=== PATIENT | female | born 1940 | race African-American/Black ===

== ENCOUNTER 2019-03-07 14:37 | Inpatient (IN) | payer MEDICARE ==
[~2019-03-07 14:37] MED LIST: Dexamethasone 20 MG/5 ML VIAL ONE; Glycopyrrolate 0.2 MG/ML 5 ML SYRINGE ONE; Lidocaine 1% PF 5 ML VIAL ONE; PROPOFOL 200 MG/20 ML VIAL ONE; Rocuronium Bromide 10 MG/ML (10ML VIAL) ONE
[2019-03-07 15:26] LABS: #Lymphocytes 2.3 thou/uL (1.20-3.40); #Neutrophils 11.9 thou/uL (1.40-6.50); %Basophils 0.3 % (0.0-1.0); %Eosinophils 0.1 % (0.0-10.0); %Lymphocytes 14.1 % (21.0-51.0); %Monocytes 12.2 % (0.0-10.0); %Neutrophils 73.4 % (42.0-75.0); Hemoglobin 11.4 g/dL (12.0-16.0); Mean Corpuscular HGB CONC 32.1 g/dL (32.0-36.0); Mean Corpuscular Hemoglobin 25.1 pg (27.0-31.0); Mean Corpuscular Volume 78.1 fL (78.0-98.0); Mean Platelet Volume 7.6 fL (7.4-10.4); Platelet Count 231 thou/uL (130-400); RBC Distribution Width 12.5 % (11.5-14.5); Red Blood Cell (RBC) Count 4.54 mill/uL (4.20-5.40); White Blood Cell (WBC) Count 16.2 thou/uL (4.8-10.8)
--- NOTE | 2019-03-07 15:41 | ULT ---
US Gallbladder RUQ: 03/07/2019 2:54 PM CLINICAL HISTORY: Right upper quadrant abdominal pain with fever and elevated white blood cell count. . STUDY: Limited right upper quadrant ultrasound of abdomen. COMPARISON: None. FINDINGS: Liver: Size: Normal. Echogenicity: Normal. Contour: Smooth. Mass: None. Bile ducts: No intrahepatic or extrahepatic biliary dilatation. Common bile duct measures 3 mm. Gallbladder: Shadowing stones are seen in the gallbladder. There is also comet tail artifact emanatin g from the gallbladder wall consistent with gallbladder cholesterolosis. Pancreas: Head, body, and tail appear normal. Right kidney: No pelvicalyceal dilatation. Right kidney measuring 10.3 cm in length. IMPRESSION: 1. Cholelithiasis 2. Gallbladder wall cholesterolosis.
[2019-03-07 15:46] LABS: ALT (SGPT) 10 U/L (8-55); AST (SGOT) 16 U/L (5-34); Albumin 3.3 g/dL (3.4-4.8); Alkaline Phosphatase 65 U/L (40-110); Anion Gap 13 mmol/L (10-20); BUN (Urea Nitrogen) 11 mg/dL (9.8-20.1); Bilirubin, Total 0.8 mg/dL (0.2-1.2); Calc. Creatinine Clearance 0 mL/min (70-130); Calcium 8.7 mg/dL (7.8-10.44); Carbon Dioxide 22 mmol/L (23-31); Chloride 99 mmol/L (98-107); Estimated GFR-MDRD 60; Globulin 3.7 g/dL (2.4-3.5); Glucose 102 mg/dL (83-110); Lipase Less than 4 U/L (8-78); Potassium 3.4 mmol/L (3.5-5.1); Sodium 131 mmol/L (136-145)
[2019-03-07 16:12] LABS: Bacteria/HPF None Seen HPF (None Seen); Bilirubin Negative (Negative); Blood, Urine Trace (Negative); Clarity Clear (Clear); Glucose, Urine (Dipstick) Normal (Negative); Leukocyte Negative Leu/uL (Negative); Nitrite Negative (Negative); Protein, Urine (Dipstick) 30 mg/dL (Neg-Trace); Squamous Epithelial 0-3 HPF (0-3); Urobilinogen Normal mg/dL (Less than 2); WBC/HPF 0-3 HPF (0-3)
--- NOTE | 2019-03-07 17:47 | HP ---
CHIEF COMPLAINT: Abdominal pain. HISTORY OF PRESENT ILLNESS: Ms. Sarmiento is an 78-year-old woman with a 4-day history of abdominal pain. She was at her sister's who passed suddenly on evening. After the metal fabricator, she started having central abdominal pain which radiated all over. She states that ever since then has come and gone somewhat unpredictably. She thought she might be constipated because she had not had a regular bowel movement in several days, so she took magnesium citrate last night and did pass some watery stool, but this did not relieve her pain at all. She came to her local emergency room today because when she woke up, the pain was quite intense. She cannot really localize it to one specific area. She should state that it seems to go all over her abdomen. She has been nauseated but has not had any vomiting. She denies any fevers or chills. She denies any changes in her bowel habits except for the recent constipation. She has not had any blood in her stool or any melena. PAST MEDICAL HISTORY: Hypertension. PAST SURGICAL HISTORY: Tubal ligation in the 1960s. ALLERGIES: SHE HAS NO KNOWN DRUG ALLERGIES. MEDICATIONS: She states that she takes several medications for her blood pressure. The list that we obtained states that she is on aspirin 81 mg p.o. daily, losartan 50 mg p.o. daily, potassium 20 mEq p.o., quinapril 10 mg p.o. and verapamil 40 mg p.o. She is unclear exactly how much she takes of each one. She states that one of her medications she only takes twice a week, but the other one she takes every day and that she has been taking these regularly. Blood pressure and temperature were both elevated at [facility]. Her temperature was 99.6, and her blood pressure was 195/69, but these have both come down since her transfer and since receiving IV antibiotics. She states that her pain is no longer severe as it was this morning and that it comes and goes unpredictably. She cannot related to any particular time of the day or activity or position or to eating. Workup in the [facility] included lab work, which showed an elevated white count and a CT which showed a distended gallbladder with pericholecystic stranding worrisome for cholecystitis. Gallbladder ultrasound here showed a normal caliber common bile duct, but multiple stones in the gallbladder with cholesterolosis, wall thickening was not definitely seen nor was there any pericholecystic fluid. REVIEW OF SYSTEMS: Ten system review of systems is negative except per HPI. The patient denies dysuria, hematuria, or recent confusion. She has been losing weight over the past year, but she has been trying to do this. When she went to her six-month followup in the spring, she had lost 12 pounds and when she followed up again this fall, she had lost another 7 pounds. She has been trying to eat healthy. SOCIAL HISTORY: The patient does not drink, smoke, or use illicit drugs. She states that she is up to date on her health maintenance. Her family said that they were told she had a mammogram this year, although the patient cannot definitely remember when her last mammogram was. She states that they did check her blood for stool at her annual and that this has been normal, but she has never had a colonoscopy. PHYSICAL EXAMINATION: VITAL SIGNS: Current systolic blood pressures in the 120s, heart rate is normal. She is 100% saturated on room air. GENERAL: Reveals a pleasant elderly woman, in no acute distress. She is somewhat forgetful regarding the timing of recent medical interventions and medications, but is able to give a good history regarding her past medical history and recent events. She is not jaundiced or icteric. She is not flushed or toxic in appearance. HEENT: Unremarkable. NECK: Supple without lymphadenopathy or thyroid nodules. HEART: Regular in its rate and rhythm without murmurs, rubs, or gallops. LUNGS: Clear to auscultation bilaterally. ABDOMEN: Soft and nondistended. She has some mild tenderness to palpation in the right upper quadrant and left lower quadrant. She does not exhibit rigidity, rebound, or guarding. She does not have any palpable masses or hernias. She has a long lower midline incision which is well healed. She states that this was just from a tubal ligation and she did not have a hysterectomy, , or salpingo-oophorectomy. EXTREMITIES: Warm and well perfused with normal pedal pulse on the left, slightly diminished on the right. No edema. NEURO: No focal deficits. PSYCHIATRIC: Alert, oriented, and appropriate. Asking appropriate questions and answering questions appropriately. LABORATORY DATA: CT and ultrasound are as previously noted. LFTs and electrolytes are unremarkable. UA is still pending. ASSESSMENT: The patient with cholelithiasis and likely cholecystitis. She has been having intermittent abdominal pain, which is quiescent currently, which has been persistent over the past four days. I think this is most likely related to her gallbladder, although I cannot guarantee this. Other possible etiologies include gastroenteritis, constipation, and gastritis, although I feel these are somewhat less likely. We discussed the diagnosis of gallstones and cholecystitis and the recommended treatment, which is laparoscopic cholecystectomy. Inherent risks of the surgery include, but are not limited to, bleeding, infection, risks of anesthesia, damage to nearby structures including bowel, liver, and bile duct, need for open surgery, need for other procedures. She understands, accepts these risks, and wishes to proceed. She has received IV antibiotics at the outside ER and we will continue these perioperatively. If she recovers uneventfully, she may be discharged home postoperatively or observed overnight depending on how she is doing. All of her questions and her grandson's questions were answered. The patient and her family are in agreement that she is able to give consent on her own and she seems fully confident to do so. She does have a medical power of claims attorney designated in the event that she is unable to make her own medical decision. Job ID: [id number]
[2019-03-07] MEDS ORDERED: Bupivacaine 0.25% HCL 30 ML VIAL ONE (18:51)
[2019-03-07] MEDS ORDERED: Lidocaine 1% w/Epinephrine 1:100K 20 ML VIAL ONE (18:51)
[2019-03-07] MEDS ORDERED: Fentanyl 100 MCG/2 ML VIAL ONE (18:55)
[2019-03-07] MEDS ORDERED: Piperacillin/Tazobactam 3.375 GM VIAL ONE (18:56)
[2019-03-07] MEDS ORDERED: Sodium Chloride 0.9% 100 ML ONE (18:56)
[2019-03-07] MEDS ORDERED: Ondansetron HCl/PF 4 MG/2 ML Vial IVP PRN (21:26)
[2019-03-07] MEDS ORDERED: Promethazine HCl 25 MG/ML VIAL SLOW IVP PRN (21:26)
[2019-03-07] MEDS ORDERED: PACU-Morphine 4MG/ML VIAL SLOW IVP PRN (21:26)
[2019-03-07] MEDS ORDERED: Promethazine HCl 25 MG/ML VIAL IM PRN (21:26)
[2019-03-07] MEDS ORDERED: Ibuprofen 200 MG TAB PO PRN ×2 (22:09→22:10)
[2019-03-07] MEDS ORDERED: Ondansetron PF 4 MG/2 ML Vial IVP PRN (22:09)
[2019-03-07] MEDS ORDERED: Acetaminophen 325 MG TAB PO PRN ×2 (22:10→22:11)
[2019-03-07] MEDS ORDERED: Morphine 2 MG/ML SYRINGE SLOW IVP PRN ×2 (22:12→22:13)
[2019-03-07] MEDS ORDERED: traMADol HCl 50 MG TAB PO PRN (22:14)
[2019-03-07] MEDS: hydrALAZINE 20 MG/ML VIAL SLOW IVP PRN (22:29)
[2019-03-07] MEDS: Sodium Chloride 0.9% 1,000 ML IV SCH (22:30)
[2019-03-07] MEDS: traMADol HCl 50 MG TAB PO PRN (23:51)
[2019-03-08] MEDS: Piperacillin/Tazobactam 3.375 GM in Sodium Chloride 0.9% 100 ML IVPB SCH ×4 (02:00→20:44)
[2019-03-08 02:55] VITALS: BMI 35.2
[2019-03-08 05:24] LABS: #Lymphocytes 0.9 thou/uL (1.20-3.40); #Monocytes 1.1 thou/uL (0.11-0.59); %Eosinophils 0.1 % (0.0-10.0); %Lymphocytes 8.3 % (21.0-51.0); %Monocytes 9.6 % (0.0-10.0); Hemoglobin 10.4 g/dL (12.0-16.0); Mean Corpuscular HGB CONC 31.4 g/dL (32.0-36.0); Mean Corpuscular Hemoglobin 24.5 pg (27.0-31.0); Mean Corpuscular Volume 78.3 fL (78.0-98.0); Mean Platelet Volume 7.4 fL (7.4-10.4); Platelet Count 245 thou/uL (130-400); RBC Distribution Width 12.6 % (11.5-14.5); Red Blood Cell (RBC) Count 4.26 mill/uL (4.20-5.40); White Blood Cell (WBC) Count 10.9 thou/uL (4.8-10.8)
[2019-03-08 05:53] LABS: ALT (SGPT) 30 U/L (8-55); AST (SGOT) 52 U/L (5-34); Alkaline Phosphatase 60 U/L (40-110); Anion Gap 14 mmol/L (10-20); BUN (Urea Nitrogen) 12 mg/dL (9.8-20.1); Bilirubin, Total 0.5 mg/dL (0.2-1.2); Calc. Creatinine Clearance 59 mL/min (70-130); Calcium 8.5 mg/dL (7.8-10.44); Carbon Dioxide 22 mmol/L (23-31); Chloride 102 mmol/L (98-107); Estimated GFR-MDRD 57; Globulin 3.6 g/dL (2.4-3.5); Glucose 133 mg/dL (83-110); Potassium 3.5 mmol/L (3.5-5.1); Protein, Total 6.6 g/dL (6.0-8.3); Sodium 134 mmol/L (136-145)
[2019-03-08] MEDS: Docusate 100 MG CAP PO SCH ×2 (08:19→20:44)
[2019-03-08] MEDS: Sodium Chloride 0.9% 1,000 ML IV SCH ×2 (08:19→17:38)
[2019-03-08] MEDS: hydrALAZINE 20 MG/ML VIAL SLOW IVP PRN ×2 (09:19→17:21)
--- NOTE | 2019-03-08 14:27 | PDOC.OP ---
Operative Note - Operative Note Operative Note: DATE OF PROCEDURE: PROCEDURES: Laparoscopic cholecystectomy. SURGEON: Enio Campbell M.D. PREOPERATIVE DIAGNOSIS: POSTOPERATIVE DIAGNOSIS: FINDINGS HISTORY: Patient with symptoms of biliary colic. Laparoscopic cholecystectomy was recommended for symptomatic relief. Preoperative LFTs were normal and bile duct was normal caliber on preoperative imaging. PROCEDURE: After informed consent was obtained and appropriate preoperative antibiotics were administered, the patient was taken to the operating room and placed in the supine position and general endotracheal anesthesia was administered. The stomach was decompressed with an OG tube and the abdomen was prepped and draped in standard sterile fashion. Local anesthesia was infused to the skin and subcutaneous tissues at the umbilical level. A transverse skin incision was made. The fascia was elevated and a Veress needle was placed into the abdominal cavity without difficulty. Opening pressure was less than 5 and carbon dioxide gas easily insufflated to an intra-abdominal pressure of 15, which the patient tolerated well. The Veress needle was withdrawn and a Magna port advanced under direct vision. The abdominal cavity was carefully examined. There was no evidence of Veress needle or of trocar injury. Local anesthesia was infused to the skin and subcutaneous tissues at the epigastric, right upper quadrant, and right lateral abdominal sites and trocars were placed under direct vision of the laparoscope. The gallbladder was completely obscured by omental adhesions but a plane was able to be developed between the omentum and the gallbladder and the gallbladder exposed. It was too distended to grasp so it was aspirated with colorless purulent fluid returned. This was sent for Gram stain and culture. The fundus of the gallbladder was grasped and retracted superiorly. The infundibulum was grasped and retracted laterally. The serosa was stripped inferiorly at the level of the neck of the gallbladder exposing the cystic duct and artery which were traced clearly to their insertion in the gallbladder. This was done with difficulty due to the severely inflamed nature of the tissues in this area, and the indurated fat near the infundibulum of the gallbladder had to be excised to allow exposure of the deeper tissues. Critical view of safety was obtained and the cystic duct and artery were clipped and divided between clips. The gallbladder was then dissected free of the gallbladder bed using hook electrocautery. Prior to complete removal of the gallbladder from the gallbladder bed, the area of the cystic duct and artery stumps was examined. The clips were in good position completely across these structures and there was no bleeding and no leakage of bile. The gallbladder was then placed into an EndoCatch bag and drawn out through the epigastric incision. The epigastric trocar was replaced and the operative site easily irrigated to clear. There was persistent oozing from the gallbladder bed which was controlled with a combination of electrocautery and Jeaneth. The epigastric trocar was removed and the fascia closed under direct laparoscopic vision with a 0 Vicryl suture on a GraNee needle in a figure-of- eight manner with excellent technical result. The right upper quadrant and right lateral abdominal trocars were removed and hemostasis verified. Carbon dioxide gas was allowed to desufflate through the umbilical trocar which was then removed. The skin incisions were closed with 4-0 subcuticular Monocryl sutures and Dermabond dressings were placed. The patient was extubated and taken to the recovery room in good condition. There were no complications. ESTIMATED BLOOD LOSS: Minimal. SPECIMEN : Gallbladder and contents, purulent bile from within the gallbladder sent for Gram stain and culture.
--- NOTE | 2019-03-08 15:36 | PDOC.GSPN ---
Surgery Progress Note: Subj - Subjective Narrative: Patient is feeling good. She has been ambulating with her rolling walker and physical therapy. She hasn't passed flatus yet but is not nauseated. Her incisions look good. She has gram-negative rods on culture but ID and sensitivity are pending. White count is lower. Assessment/plan: Doing well status post laparoscopic cholecystectomy for acute cholecystitis. She had pus in her gallbladder and I'm going to keep her for another day for continued IV antibiotics. Awaiting cultures. We'll request a rolling walker for home use. Surgery Progress Note: Obj - Vital signs Vital signs: Vital Signs - Most Recent Temp Pulse Resp BP Pulse Ox 99.0 F 83 20 179/69 H 97 03/08/19 12:14 03/08/19 12:14 03/08/19 12:14 03/08/19 12:14 03/08/19 12:14 Surgery Progress Note: Results - Labs Result Diagrams: 03/08/19 05:03 03/08/19 05:03 Lab results: Laboratory Results - last 24 hr 03/08/19 03/08/19 05:03 05:03 WBC 10.9 H RBC 4.26 Hgb 10.4 L Hct 33.3 L MCV 78.3 MCH 24.5 L MCHC 31.4 L RDW 12.6 Plt Count 245 MPV 7.4 Neutrophils % 82.0 H Lymphocytes % 8.3 L Monocytes % 9.6 Eosinophils % 0.1 Basophils % 0.0 Neutrophils # 9.0 H Lymphocytes # 0.9 L Monocytes # 1.1 H Eosinophils # 0.0 Basophils # 0.0 Sodium 134 L Potassium 3.5 Chloride 102 Carbon Dioxide 22 L Anion Gap 14 BUN 12 Creatinine 1.12 H Estimated GFR (MDRD) 57 Glucose 133 H Calcium 8.5 Total Bilirubin 0.5 AST 52 H ALT 30 Alkaline Phosphatase 60 Serum Total Protein 6.6 Albumin 3.0 L Globulin 3.6 H Albumin/Globulin Ratio 0.8 L
[2019-03-08] MEDS: traMADol HCl 50 MG TAB PO PRN (19:27)
[2019-03-09] MEDS: hydrALAZINE 20 MG/ML VIAL SLOW IVP PRN ×3 (01:54→12:38)
[2019-03-09] MEDS: Piperacillin/Tazobactam 3.375 GM in Sodium Chloride 0.9% 100 ML IVPB SCH ×3 (01:56→14:19)
[2019-03-09] MEDS: Sodium Chloride 0.9% 1,000 ML IV SCH ×2 (03:17→14:19)
[2019-03-09] MEDS: Docusate 100 MG CAP PO SCH ×2 (08:19→20:40)
[2019-03-09] MEDS: Lisinopril 20 MG TAB PO SCH (10:53)
[2019-03-09] MEDS ORDERED: hydrALAZINE 10 MG TAB PO PRN (15:16)
[2019-03-09] MEDS ORDERED: hydrALAZINE 20 MG/ML VIAL IM PRN (15:16)
--- NOTE | 2019-03-09 16:45 | PDOC.GSPN ---
Surgery Progress Note: Subj - Subjective Narrative: Patient had some problems with dizziness after getting up and walking to the bathroom earlier today. She is feeling better since getting into bed. Her blood pressure has been running high but her home medications have been restarted. Her incisions look good. She has pansensitive Klebsiella on her gallbladder cultures. She is afebrile and her vital signs are okay except for the hypertension. Assessment/plan: Status post laparoscopic cholecystectomy for acute cholecystitis. I'm going to switch her to oral antibiotics and if she tolerates these and does well and her dizziness improves we will likely discharge her home tomorrow. Surgery Progress Note: Obj - Vital signs Vital signs: Vital Signs - Most Recent Temp Pulse Resp BP Pulse Ox 99.1 F 93 18 165/95 H 94 L 03/09/19 16:03 03/09/19 16:03 03/09/19 16:03 03/09/19 16:03 03/09/19 16:03 Surgery Progress Note: Results - Labs Result Diagrams: 03/08/19 05:03 03/08/19 05:03
[2019-03-09] MEDS: Ciprofloxacin 500 MG TAB PO SCH (20:40)
[2019-03-09] MEDS ORDERED: Enoxaparin Sodium 40 MG/0.4 ML SYRINGE SC SCH (21:00)
[2019-03-09] MEDS ORDERED: Lisinopril 20 MG TAB PO SCH (21:00)
[2019-03-10] MEDS: Ciprofloxacin 500 MG TAB PO SCH (05:39)
[2019-03-10 06:23] LABS: Hemoglobin 10.1 g/dL (12.0-16.0); Mean Corpuscular HGB CONC 30.8 g/dL (32.0-36.0); Mean Corpuscular Hemoglobin 24.9 pg (27.0-31.0); Mean Corpuscular Volume 80.7 fL (78.0-98.0); Mean Platelet Volume 7.6 fL (7.4-10.4); Platelet Count 282 thou/uL (130-400); RBC Distribution Width 12.7 % (11.5-14.5); Red Blood Cell (RBC) Count 4.04 mill/uL (4.20-5.40); White Blood Cell (WBC) Count 8.2 thou/uL (4.8-10.8)
[2019-03-10 06:35] LABS: ALT (SGPT) 31 U/L (8-55); AST (SGOT) 34 U/L (5-34); Albumin 2.7 g/dL (3.4-4.8); Alkaline Phosphatase 61 U/L (40-110); Anion Gap 13 mmol/L (10-20); BUN (Urea Nitrogen) 11 mg/dL (9.8-20.1); Bilirubin, Total 0.6 mg/dL (0.2-1.2); Calc. Creatinine Clearance 78 mL/min (70-130); Calcium 8.4 mg/dL (7.8-10.44); Carbon Dioxide 22 mmol/L (23-31); Chloride 102 mmol/L (98-107); Estimated GFR-MDRD 79; Globulin 3.5 g/dL (2.4-3.5); Glucose 80 mg/dL (83-110); Potassium 3.2 mmol/L (3.5-5.1); Protein, Total 6.2 g/dL (6.0-8.3); Sodium 134 mmol/L (136-145)
[2019-03-10] MEDS: Docusate 100 MG CAP PO SCH (08:21)
[2019-03-10] MEDS: Lisinopril 20 MG TAB PO SCH (08:22)
[2019-03-10 09:09] LABS: Eosinophils 1 % (0-10); Hypochromia SLIGHT = 6-15 cells (100X) (0-5/hpf); Lymphocytes 25 % (21-51); MDiff Complete? YES; Monocytes 12 % (0-10); Neutrophil 60 % (42-75); Platelet Morphology Comment Appears Adequate; Polychromasia SLIGHT = 2-3 cells (100X) (0-2/hpf); Reactive Lymphocytes 2 % (0-10)
--- NOTE | 2019-03-10 10:31 | PQF ---
SAÚL BATES KIMIYE MD [id number] SURG B- 3309 [id number] CLINICAL DOCUMENTATION IMPROVEMENT CLARIFICATION FORM: ICD-10 Updated PLEASE DO AN ADDENDUM TO THE PROGRESS NOTE WITH ANY DOCUMENTATION UPDATES OR ADDITIONS AND CARRY THROUGH TO DC SUMMARY. THANK YOU. DATE: 03/10/19 ATTN: Dr. Campbell Please exercise your independent, professional judgment in responding to the clarification form. Clinical indicators are provided on the bottom of this form for your review Please check appropriate box(s): [ ] Hyponatremia please specify etiology, if known [ ] Hyponatremia due to SIADH (Syndrome of Inappropriate Secretion of Antidiuretic Hormone) [ ] Other diagnosis [ ] Unable to determine In addition, please specify: Present on Admission (POA): [ ] Yes [ ] No [ ] Unable to determine CLINICAL INDICATORS - SIGNS / SYMPTOMS / LABS / RESULTS AND LOCATION IN EMR Na level--> 03/07 Na 131; 03/08 Na 134; 03/10 Na 134 per lab RISK FACTORS / RESULTS AND LOCATION IN EMR 03/07 Surg(Adrian): "admitted with abdominal pain and nausea; cholelithiasis and likely cholecystitis" TREATMENTS / RESULTS AND LOCATION IN EMR IV fluids--> NS at 100 03/07-03/09 per orders Electrolyte labs 03/07-03/08, 03/10 per orders (This form is maintained as a part of the permanent medical record) 2014 [employer]. All Rights Reserved Tracee Nicole RN, BSN, CCDS [email or web address] [email or web address]
--- NOTE | 2019-03-10 10:35 | PQF ---
SAÚL BATES KIMIYE MD [id number] [facility] B- 3309 [id number] CLINICAL DOCUMENTATION IMPROVEMENT CLARIFICATION FORM: ICD-10 Updated PLEASE DO AN ADDENDUM TO THE PROGRESS NOTE WITH ANY DOCUMENTATION UPDATES OR ADDITIONS AND CARRY THROUGH TO DC SUMMARY. THANK YOU. DATE: 03/10/19 ATTN: Dr. Campbell Please exercise your independent, professional judgment in responding to the clarification form. Clinical indicators are provided on the bottom of this form for your review Please check appropriate box(s): [ ] Acute Renal Failure (ARF) / Acute Kidney Injury (HIRA) [ ] Other Etiology or underlying conditions related to the diagnosis of ARF/ HIRA: [ ] Other: [ ] Acute Renal insufficiency [ ] Other diagnosis [ ] Unable to determine In addition, please specify: Present on Admission (POA): [ ] Yes [ ] No [ ] Unable to determine National Kidney Foundation Guidelines for CKD Staging Stage I Kidney damage with normal or increased GFRGFR > 90 Stage IIKidney damage with mildly decreased GFRGFR 60-89 Stage III Kidney damage with moderately decreased GFRGFR 30-59 Stage IVKidney damage with severely decreased GFRGFR 16-29 Stage VKidney failureGFR<15 ESRDEnd Stage Renal DiseaseOn dialysis Acute Renal Failure/Acute Kidney Failure defined as: Increases in SCr by (>) 0.3 mg/dl within 48 hours OR- Increases in SCr by (>) 1.5 times baseline, known or presumed to have occurred within the prior 7 days OR- Urine volume < 0.5 ml/kg/hour for 6 hours (KDIGO supplement 2012 for RIFLE/GURU criteria) For continuity of documentation, please document condition throughout progress notes and discharge summary. Thank You. CLINICAL INDICATORS - SIGNS / SYMPTOMS / LABS / RESULTS AND LOCATION IN MR Abnormal labs (BUN, creatinine, low GFR)--> 12/8 bun 11, creat 1.07, GFR 60; 03/08 BUN 12, CREAT 1.12, GFR 57; 03/10 na 134, bun 11, creat 0.84, GFR 79 per lab 03/07 Campbell: "Nausea / abdominal pain" RISK FACTORS / RESULTS AND LOCATION IN MR Dehydration--> 03/07 H&P (Campbell): "cholelithiasis and likely cholecystitis" TREATMENTS / RESULTS AND LOCATION IN MR IV fluids--> NS at 100 03/07-03/09 per orders BMP 03/07, 03/08, 03/10 per orders (This form is maintained as a part of the permanent medical record) 2014 [employer] All Rights Reserved Tracee Nicole RN, BSN, CCDS [email or web address] MTDD
--- NOTE | 2019-03-10 10:45 | PQF ---
SAÚL BATES KIMIYE MD [id number] SURG B- 3309 [id number] CLINICAL DOCUMENTATION IMPROVEMENT CLARIFICATION FORM: ICD-10 Updated PLEASE DO AN ADDENDUM TO THE PROGRESS NOTE WITH ANY DOCUMENTATION UPDATES OR ADDITIONS AND CARRY THROUGH TO DC SUMMARY. THANK YOU. DATE: 03/10/19 ATTN: Dr. Campbell Please exercise your independent, professional judgment in responding to the clarification form. Clinical indicators are provided on the bottom of this form for your review Please check appropriate box(es): [ ] Klebsiella Sepsis due to: infected gallbladder [ ] Sepsis due to Klebsiella infection [ ] SIRS due to non-infectious process (please specify etiology) [ ] with organ dysfunction (HIRA) [ ] without organ dysfunction [ ] Severe sepsis with acute organ dysfunction of acute kidney injury (HIRA) [ ] Localized infection without sepsis [ ] Other diagnosis [ ] Unable to determine In addition, please specify: Present on Admission (POA): [ ] Yes [ ] No [ ] Unable to determine For continuity of documentation, please document condition throughout progress notes and discharge summary. Thank You. CLINICAL INDICATORS - SIGNS / SYMPTOMS / LABS / RESULTS AND LOCATION IN MR Respiratory rate >20/min--> RR 24 per 03/07 VS Increase BUN/Founder And Ceo, decrease GFR--> 03/07 bun 11, creat 1.07, GFR 60; 03/08 BUN 12, CREAT 1.12, GFR 57; 03/10 na 134, bun 11, creat 0.84, GFR 79 per lab WBC count (>12,000/mm^4 or <4000/mm^3 or 10% neuts, 10% bands)--> WBC 16.2 per 03/07 lab 03/09 Campbell: "pansenitive Klebsiella-gallbaldder cultures" RISK FACTORS / RESULTS AND LOCATION IN MR 03/08 Campbell: "Gram neg rods on culture-acute cholecystitis, pus in gallbladder " TREATMENTS / RESULTS AND LOCATION IN MR IV antibiotics - broad spectrum--> Zosyn 3.375 gm IV Q8H 03/08-03/09 to 03/09- date Cipro 500 mg PO BID per orders IV Fluids--> IV fluids--> NS at 100 03/07-03/09 per orders (This form is maintained as a part of the permanent medical record) 2014 [address], [employer]. All Rights Reserved Tracee Nicole RN, BSN, CCDS [email or web address] [phone] MTDD
[2019-03-10 11:04] VITALS: BP 195/70; TEMP 97.9
--- NOTE | 2019-03-18 23:52 | PQF ---
[employer] Pricing Clerk Crystal Reports Winform ViewerSAÚL BATES KIMIYE MD [id number] SURG B- 3309 [id number] CLINICAL DOCUMENTATION CLARIFICATION FORM: POST DISCHARGE Addendum to original discharge summary date: ____ Late entry note date: __ DATE: 03/18/2019 ATTN:MARTIN SMITH MD Please exercise your independent, professional judgment in responding to the clarification form. Clinical indicators are provided on the bottom of this form for your review Please check appropriate box(s): Kindly Provide weather patient had intraoperative hemorrhage or not during surgery [ ] Patient does had intra operative hemorrhage during surgery [ ] Patient does not had intra operative hemorrhage during surgery [ ] Other diagnosis [ ] Unable to determine In addition, please specify: Present on Admission (POA): [ ] Yes [ ] No [ ] Unable to determine For continuity of documentation, please document condition throughout progress notes and discharge summary. Thank You. CLINICAL INDICATORS - SIGNS / SYMPTOMS / LABS There was persistent Oozing from the gallbladder - Documented in OP note Estimated blood lass minimal - Documented in OP note There were no complication - Documented in OP note RISK FACTORS Acute Cholecystitis laparoscopic Cholecystectomy - Documented in OP note HTN TREATMENTS: Oozing was controlled with a combination of electrocautery and jose - Documented in OP note (This form is maintained as a part of the permanent medical record) 2014 [employer]. All Rights Reserved [employer] Pricing Clerk Crystal Reports [employer] [email or web address] [not provided] MTDD
--- NOTE | 2019-03-20 16:06 | EKG ---
Test Reason : Blood Pressure : / mmHG Vent. Rate : 074 BPM Atrial Rate : 074 BPM P-R Int : 104 ms QRS Dur : 084 ms QT Int : 376 ms P-R-T Axes : -15 -04 075 degrees QTc Int : 417 ms Sinus rhythm with short DC Nonspecific T wave abnormality Abnormal ECG Confirmed by TATIANA DEWITT, SHAW Toth ([id number]), tape editor CHRISTIAN CARIAS ([id number]) on 03/20/2019 4:05:52 PM Referred By: Confirmed By:SHAW SIMPSON MD
== END 2019-03-10 14:15 | disposition home or self-care (01) | DRG 419 ==
LOC: ERS 14:37 → SDC 16:54 → SURG B 22:10 → OBSVTOIN 03-08 17:51
PROVIDERS: ADMIT Surgery; ATTEND Surgery
PROC: 0FT44ZZ Resection of Gallbladder, Percutaneous Endoscopic Approach (ICD-10-PCS; principal; 2019-03-08)
DX: K80.00 Calculus of gallbladder with acute cholecystitis without obstruction (principal); I10 Essential (primary) hypertension; Z79.899 Other long term (current) drug therapy; Z98.51 Tubal ligation status; R42 Dizziness and giddiness
CPT/HCPCS: 36415; 76705; 80053; 81003; 81015; 83690; 85025; 87070; 87077; 87186; 87205; 88304; 93005; J0360; J1100; J1650; J2001; J2543; J2704; J3010; J3490; S0020